=== PATIENT | female | born 2000 | race Caucasian/White ===

== ENCOUNTER 2019-12-21 19:49 | Emergency (ER) | payer BC ==
[~2019-12-21 19:49] MED LIST: Iopamidol 370 76% 100 ML VIAL ONE
[2019-12-21 20:11] LABS: Bilirubin Negative (Negative); Blood, Urine Negative (Negative); Clarity Clear (Clear); Glucose, Urine (Dipstick) Negative (Negative); Leukocyte Negative (Negative); Nitrite Negative (Negative); Protein, Urine (Dipstick) Negative (Neg-Trace); Urobilinogen 0.2 mg/dL (Less than 2)
[2019-12-21 20:12] LABS: Pregnancy Test - Urine (BHCG) Negative (Negative)
[2019-12-21 20:13] LABS: Pregu Control Background? CLEAR/WHITE (CLR/WHITE); Pregu Control Bar Appear? YES (CONTROL BAR)
[2019-12-21] MEDS ORDERED: Ketorolac Tromethamine 30 MG/ML VIAL ONE (20:31)
[2019-12-21 20:39] LABS: #Basophils 0.1 thou/uL (0.0-0.2); #Eosinphils 0.1 thou/uL (0.0-0.7); #Lymphocytes 2.4 thou/uL (1.20-3.40); #Monocytes 0.5 thou/uL (0.11-0.59); #Neutrophils 4.9 thou/uL (1.40-6.50); %Basophils 1.5 % (0.0-1.0); %Lymphocytes 29.8 % (28.0-48.0); %Monocytes 6.3 % (0.0-4.0); %Neutrophils 61.5 % (31.0-61.0); Hemoglobin 14.8 g/dL (12.0-16.0); Mean Corpuscular HGB CONC 32.2 g/dL (32.0-36.0); Mean Corpuscular Volume 90.1 fL (78.0-98.0); Mean Platelet Volume 7.6 fL (7.4-10.4); Platelet Count 272 thou/uL (130-400); RBC Distribution Width 11.1 % (11.5-14.5); Red Blood Cell (RBC) Count 5.09 mill/uL (4.00-5.20); White Blood Cell (WBC) Count 7.9 thou/uL (4.8-10.8)
[2019-12-21 20:50] LABS: Anion Gap 17 mmol/L (10-20); BUN (Urea Nitrogen) 11 mg/dL (7.0-18.7); Calc. Creatinine Clearance 0 mL/min (70-130); Carbon Dioxide 25 mmol/L (22-29); Chloride 104 mmol/L (98-107); Estimated GFR-MDRD Greater than 90; Glucose 84 mg/dL (70-105); Lipase 11 U/L (8-78); Potassium 3.5 mmol/L (3.5-5.1); Sodium 142 mmol/L (136-145)
--- NOTE | 2019-12-21 20:56 | CT ---
CT OF THE ABDOMEN AND PELVIS WITH IV CONTRAST INDICATION: Left upper quadrant abdominal pain COMPARISON: None FINDINGS: ABDOMEN: Lung bases: Clear Liver: No focal lesion. Gallbladder: Normal appearing. Pancreas: Normal. Adrenal glands: Normal. Spleen: Normal. Kidneys and ureters: Normal. No hydronephrosis. Vasculature: Normal. Lymph nodes:No lymphadenopathy. Free fluid in abdomen:No free fluid is evident. PELVIS: Small and large bowel: Normal Appendix:Normal Bladder: Normal. Rectal and perirectal soft tissues:Normal. Reproductive structures: 3.3 cm right adnexal cyst. Uterus and left adnexa are normal appearing. Free fluid in pelvis: Mild Lymphadenopathy pelvis: No lymphadenopathy is evident. Osseous structures: No acute osseous abnormality. No destructive osteolytic or osteoblastic lesion i s identified. Soft tissues:Normal. IMPRESSION: 1. 3.3 cm right adnexal cyst. 2. Mild free fluid within the pelvis.
[2019-12-21] MEDS ORDERED: Morphine 4 MG/ML VIAL ONE (21:25)
[2019-12-26 00:09] LABS: Chlamydia by PCR Not Detected (NotDetected); GC by PCR Not Detected (NotDetected)
== END 2019-12-21 23:13 | disposition short-term general hospital (02) ==
LOC: MADERS 19:49
DX: N83.201 Unspecified ovarian cyst, right side (principal); F32.9 Major depressive disorder, single episode, unspecified
CPT/HCPCS: 36415; 74177; 80048; 81003; 81025; 83690; 85025; 87480; 87491; 87510; 87591; 87660; 96374; 96375; J1885; J2270; Q9967